=== PATIENT | female | born 1945 | race Caucasian/White ===

== ENCOUNTER 2017-02-13 10:35 | Emergency (ER) | payer MEDICARE, BC ==
[~2017-02-13] VITALS: Ht 165.1 cm; Wt 82.4 kg
[2017-02-13 13:39] LABS: HEMATOCRIT 43.6 % (34.6-47.8); HEMOGLOBIN 14.6 g/dL (11.7-16.4); WHITE BLOOD COUNT 9.9 x10^3/uL (3.4-10)
[2017-02-13 13:52] LABS: ASPARTATE AMINO TRANSFERASE 18 U/L (15-37); BLOOD UREA NITROGEN 10 mg/dL (7-18)
[2017-02-13] MEDS ORDERED: SODIUM CHLORIDE FLUSH 10ML SYR IVF ONE (14:00)
[2017-02-13] MEDS ORDERED: SODIUM CHLORIDE 0.9% 1,000ML IVBOLUS ONE (14:00)
[2017-02-13] MEDS ORDERED: OMNIPAQUE 350 MG/ML, 100ML BOTTLE ONE (14:30)
[2017-02-13] MEDS ORDERED: AMLO5TAB2 PO (15:11)
[2017-02-13] MEDS ORDERED: EZET1TAB30 PO (15:11)
[2017-02-13 16:04] VITALS: BP 117/75
== END 2017-02-13 16:07 | disposition home or self-care (01) ==
LOC: ED 13:39
DX: K57.32 Diverticulitis of large intestine without perforation or abscess without bleeding (principal); M13.852 Other specified arthritis, left hip; Z88.0 Allergy status to penicillin; Z88.1 Allergy status to other antibiotic agents
CPT/HCPCS: 36415; 73502; 73564; 74177; 80053; 81001; 82550; 83690; 85025; 87086; 93971; 96360; 99285; J7030; Q9967

== ENCOUNTER 2017-02-20 08:04 | Emergency (ER) | payer MEDICARE, BC ==
[~2017-02-20] VITALS: Ht 165.1 cm; Wt 81.0 kg
[~2017-02-20 08:04] MED LIST: AMLO5TAB2 PO; EZET1TAB30 PO
[2017-02-20] MEDS ORDERED: ONDANSETRON 2MG/ML, 2ML IVPush ONE (09:00)
[2017-02-20] MEDS ORDERED: MORPHINE SULFATE 4 MG/ML, 1ML IVPush PRN (09:00)
[2017-02-20 09:10] LABS: HEMATOCRIT 39.5 % (34.6-47.8); HEMOGLOBIN 13.2 g/dL (11.7-16.4); WHITE BLOOD COUNT 7.6 x10^3/uL (3.4-10)
[2017-02-20 09:20] LABS: BLOOD UREA NITROGEN 8 mg/dL (7-18)
[2017-02-20] MEDS ORDERED: ONDANSETRON 2MG/ML, 2ML ONE (09:48)
[2017-02-20] MEDS ORDERED: MORPHINE SULFATE 4 MG/ML, 1ML ONE (09:48)
[2017-02-20] MEDS ORDERED: CIPROFLOXACIN/PMX 400MG/200ML 200 ML ONE (09:48)
[2017-02-20] MEDS ORDERED: METRONIDAZOLE PMX 500MG/100ML 0 ML ONE (09:48)
[2017-02-20] MEDS ORDERED: SODIUM CHLORIDE FLUSH 10ML SYR IVF ONE (10:00)
[2017-02-20] MEDS ORDERED: CIPROFLOXACIN/PMX 400MG/200ML 100 ML IVPB ONE (10:00)
[2017-02-20] MEDS ORDERED: SODIUM CHLORIDE 0.9% 1,000ML IVBOLUS ONE (10:00)
[2017-02-20] MEDS ORDERED: METRONIDAZOLE PMX 500MG/100ML 100 ML IVPB ONE (11:00)
[2017-02-20] MEDS ORDERED: METRONIDAZOLE PMX 500MG/100ML 100 ML ONE (11:08)
[2017-02-20 12:27] VITALS: BP 107/67
[2017-02-20] MEDS ORDERED: OMNIPAQUE 350 MG/ML, 100ML BOTTLE ONE (18:09)
== END 2017-02-20 13:03 | disposition home or self-care (01) ==
LOC: ED 08:31
DX: K57.32 Diverticulitis of large intestine without perforation or abscess without bleeding (principal); I10 Essential (primary) hypertension; M19.90 Unspecified osteoarthritis, unspecified site; Z90.710 Acquired absence of both cervix and uterus; Z88.0 Allergy status to penicillin; Z88.1 Allergy status to other antibiotic agents
CPT/HCPCS: 36415; 74177; 80048; 82040; 83605; 84145; 85025; 87040; 96361; 96365; 96366; 96367; 96375; 99285; J0744; J2405; J7030; Q9967